=== PATIENT | male | born 1995 | race Caucasian/White ===

== ENCOUNTER 2017-04-30 09:25 | Day surgery (SDC) | payer OTHER ==
[~2017-04-30 09:25] MED LIST: Buffered Lidocaine 0.9% SYRIN* 5 ML/SYR SYRINGE INTRADERM ONE
[2017-04-30] MEDS ORDERED: Buffered Lidocaine 0.9% SYRIN* 5 ML/SYR SYRINGE ONE (09:33)
[2017-04-30] MEDS ORDERED: Ketorolac INJ* 30 MG/ML 1 ML VIAL ONE (09:37)
[2017-04-30] MEDS ORDERED: fentaNYL* 50 MCG/ML 2 ML VIAL (100 MCG VIAL) ONE (10:26)
[2017-04-30] MEDS ORDERED: Midazolam* 1 MG/ML 2 ML VIAL (2 MG) ONE ×2 (10:27→11:25)
[2017-04-30] MEDS ORDERED: ceFAZolin 2 GM PREMIX (*) 2 GM/50 ML BAG IVPB ONE (10:29)
[2017-04-30] MEDS ORDERED: Bupivacaine 0.5% SDV PF* 10-30ML VIAL ONE (10:49)
[2017-04-30] MEDS ORDERED: Lidocaine 1% MPF wEPI 200,000* 30 ML SDV ONE (11:00)
[2017-04-30] MEDS ORDERED: Propofol* 10 MG/ML 20 ML BTL IV PUSH ONE (11:03)
[2017-04-30] MEDS ORDERED: Naloxone* 0.4 MG/ML 1 ML VIAL IV PRN (11:23)
--- NOTE | 2017-04-30 11:38 | OP ---
Operative Report - Blank - Operative Report Date of Operation: 04/30/17 Note: Preop Dx: Right Inguinal Hernia Postop Dx: same; indirect Procedure: open repair RIH w/ mesh Anesthesia: local MAC Surgeon: Bree Asst: MARY ALICE Prasad Fluids: 400 ml RL EBL: < 10 ml Drains: none Specimen: none Findings: dictated
[2017-04-30] MEDS ORDERED: Acetaminophen TAB* 325 MG PO PRN (11:39)
[2017-04-30 12:04] VITALS: BP 109/55
--- NOTE | 2017-04-30 22:39 | OP ---
CC: Dr. Kolb * DATE OF OPERATION: 04/30/17 - SDS DATE OF : [birth year] SURGEON: Amilcar Giron MD SUPER[employer]: MARY ALICE Benz ANESTHESIOLOGIST: Merritt Lang MD ANESTHESIA: LMAC. PRE-OP DIAGNOSIS: Right inguinal hernia. POST-OP DIAGNOSIS: Right inguinal hernia. OPERATIVE PROCEDURE: Open right inguinal hernia repair with mesh. DESCRIPTION OF PROCEDURE: The patient was supine on the operative table. After adequate intravenous sedation, compression stockings, Radha Hugger warmer, and intravenous antibiotics, the right groin was prepped with antiseptic, draped in a sterile fashion. Local infiltrative anesthesia was administered. An approximately 1-1/2 inch incision was created, carried down to the tissue layers. External oblique was opened in the direction of its fibers. Cord structures were encircled with a [place]eca drain and tented upward. The indirect space had a hernia sac, which was dissected free and reduced and the small cone mesh plug was placed into the internal ring, sutured there with 2-0 Vicryl. A second piece of mesh was placed over the inguinal floor, also sutured with 2-0 Vicryl to the tubercle and tails were split, brought around the cord structures and tucked down laterally. External oblique was closed over top with 2-0 Vicryl. Karina's with 3-0 Vicryls. Skin with 4-0 Prolene followed by sterile dressing. He tolerated the procedure well, was brought to Recovery in good condition. No complications. No drains. No pathologic specimens. Sponge and instruments counts correct. Estimated blood loss is 10 mL. [id number]/[facility] #: [id number] [facility]
== END 2017-04-30 12:21 | disposition home or self-care (01) ==
LOC: OR 09:25
PROVIDERS: ATTEND Surgery
DX: K40.90 Unilateral inguinal hernia, without obstruction or gangrene, not specified as recurrent (principal); K21.9 Gastro-esophageal reflux disease without esophagitis; R13.10 Dysphagia, unspecified
CPT/HCPCS: C1781; J0690; J1885; J2001; J2250; J2704; J3010